=== PATIENT | male | born 1965 | race Caucasian/White ===

== ENCOUNTER 2023-11-24 11:09 | Emergency (ER) | payer SELFPAY ==
[2023-11-24 11:21] VITALS: BP 142/94; O2SAT 99
--- NOTE | 2023-11-24 11:55 | ED Physician Documentation ---
History of Present Illness - Stated complaint Stated Complaint: RT FOOT SWOLLEN - Chief complaint Chief Complaint: Ext Problem - History obtained from History obtained from: Patient - History of Present Illness Timing: How many days ago (3) Pain level max: 6 Pain level now: 6 - Additonal information Additional information: 58-year-old male presents to the emergency department with right foot pain ongoing for the past 3 days since moving furniture into his new home. He has noted swelling and bruising. Has been using crutches it is too painful to walk. Worse with movement, better with rest. Not on blood thinners. No known injury. No head, neck, back pain. No other injuries. Review of Systems Constitutional: denies: Fever, Chills GI: denies: Vomiting, Diarrhea Skin: denies: Rash Musculoskeletal: denies: Neck pain, Back pain Neurologic: denies: Headache PD PAST MEDICAL HISTORY - Past Medical History Past Medical History: No Cardiovascular: None Respiratory: None Neuro: None Endocrine/Autoimmune: None GI: None : None HEENT: None Psych: None Musculoskeletal: None Derm: None - Past Surgical History Past Surgical History: No - Present Medications Home Medications: Ambulatory Orders Medication Instructions Recorded Confirmed HYDROcod/ACETAM 5/325 [Lashmeet 5/325] 1 - 2 ea PO Q6H PRN #14 tablet 11/24/23 - Allergies Allergies/Adverse Reactions: Allergies Allergy/AdvReac Type Severity Reaction Status Date / Time No Known Drug Allergies Allergy Verified 11/24/23 11:20 - Social History Does the pt smoke?: No Smoking Status: Never smoker Does the pt drink ETOH?: No Does the pt have substance abuse?: No - Immunizations Immunizations are current?: Yes - POLST Patient has POLST: No PD ED PE NORMAL - Vitals Vital signs reviewed: Yes - General General: Alert and oriented X 3, No acute distress - HEENT HEENT: Moist mucous membranes - Neck Neck: Supple, no meningeal sign - Respiratory Respiratory: No respiratory distress - Derm Derm: Warm and dry - Extremities Extremities: Other (R foot - Diffuse swelling over the dorsum of the foot with bruising down to the toes. Tenderness over the dorsum of the foot. Neurovascular intact. No tenderness over the ankle, tibia or fibula.) - Neuro Neuro: Alert and oriented X 3 - Psych Psych: Normal mood, Normal affect Results - Vitals Vitals: Vital Signs - 24 hr 11/24/23 11:13 Temperature 36.7 C Heart Rate 76 Respiratory 16 Rate Blood Pressure 142/94 H O2 Saturation 99 Oxygen O2 Source Room air - Rads (name of study) R foot xray Relevant Findings:: Final report received, See rad report PD Medical Decision Making - ED course Complexity details: reviewed results, re-evaluated patient, considered differential, d/w patient, d/w family, d/w talent development consultant ED course: Patient with a right foot injury. Has a second metatarsal fracture. Also third and fourth metatarsal fractures. Dr. Carl came and evaluated the patient in the emergency department, recommends walking boot and follow-up in clinic. Will prescribe pain medications for home. Patient counseled regarding signs and symptoms for which I believe and urgent re-evaluation would be necessary. Patient with good understanding of and agreement to plan and is comfortable going home at this time This document was made in part using voice recognition software. While efforts are made to proofread this document, sound alike and grammatical errors may occur. Departure - Departure Disposition: 01 Home, Self Care Clinical Impression: Metatarsal fracture Qualifiers: Encounter type: initial encounter Metatarsal bone: unspecified metatarsal Fracture type: closed Fracture alignment: displaced Laterality: right Qualified Code(s): S92.301A - Fracture of unspecified metatarsal bone(s), right foot, initial encounter for closed fracture Condition: Good Instructions: ED Fx Foot Follow-Up: [facility] [Provider Group] - Within 1 week Prescriptions: HYDROcod/ACETAM 5/325 [Lashmeet 5/325] 1 - 2 ea PO Q6H PRN #14 tablet PRN Reason: Pain Comments: You have a second metatarsal fracture on your right foot. Please follow-up with orthopedics for further care. You were placed into a walking boot today, your prescriptions were sent to [facility] in [place]. Please return if you worsen. I am prescribing a short course of narcotic pain medication for you. These are potentially dangerous and addictive medications that should be used carefully. These medications may constipate you. Take an [id number] stool softener (docusate) twice daily with plenty of water while taking these medications. If you go 24 hours without a bowel movement, take [id number] miralax, per package instructions. Do not drink or drive while taking these medications. If you received narcotic or sedating medications while in the emergency department, do not drive for 24 hours. Store this medication in a safe, secure place and out of reach of children. It is a violation of federal law to give or sell this medication to another person or to use in a manner other than prescribed. The ED will not refill narcotic prescriptions, including prescriptions lost or stolen. To dispose of unwanted medications: 1. [facility] at [address] in [place] has a medication drop box. They accept prescription medications (in pill form) Wednesday through Wednesday 9:00 a.m. to 5:00 p.m. 2. The [facility] accepts prescription medications (in pill form only) for disposal year round. Call for more information. 3. Contact the [facility] for the next [facility] sponsored prescription drug collection event. , [phone], or [phone]; Forms: PCP List
[2023-11-24] MEDS: HYDROcod/ACETAM 5/325 MG TABLET PO STA (12:04)
--- NOTE | 2023-11-24 12:16 | XRAY Report ---
PROCEDURE: Foot 3+V RT INDICATIONS: SWELLING/PAIN/BRUISING R FOOT TECHNIQUE: 3 views of the foot were acquired. COMPARISON: None. FINDINGS: Bones: There are multiple fractures at the base of the metatarsals most notably second through fourth . Some demonstrate intra-articular extension. The second metatarsal fracture is comminuted with displ acement more severe than reaction of the third and fourth digits. No suspicious bony lesions. Soft tissues: No tibiotalar joint effusion. Achilles tendon appears normal. IMPRESSION: Multiple proximal metatarsal fracture suspicious for Lisfranc. Reviewed by: Lindsey Ferris MD on 11/24/2023 12:15 PM PST Approved by: Lindsey eFrris MD on 11/24/2023 12:15 PM PST Station ID: [id number]
== END 2023-11-24 12:29 | disposition home or self-care (01) ==
LOC: ED 11:09
DX: S92.301A Fracture of unspecified metatarsal bone(s), right foot, initial encounter for closed fracture (principal); X58.XXXA Exposure to other specified factors, initial encounter; Y93.E6 Activity, residential relocation
CPT/HCPCS: 99283; 99284

== ENCOUNTER 2023-12-02 10:45 | Outpatient (CLI) | payer SELFPAY ==
--- NOTE | 2023-12-02 18:16 | XRAY Report ---
PROCEDURE: Foot 3 View RT INDICATIONS: RIGHT FOOT FRACTURES TECHNIQUE: 3 views of the foot were acquired. COMPARISON: 11/24/2023 FINDINGS: Bones: Proximal metatarsal fractures 2 through 4 and lateral subluxation of the first through fourth metatarsals suspicious for homolateral Lisfranc fracture dislocation. No new fractures are identifie d. There is mild plantar calcaneal spurring Soft tissues: No suspicious soft tissue calcifications or masses. Mild peripheral vascular calcifi cation. IMPRESSION: Stable appearance and position of Lisfranc fracture dislocation. Reviewed by: Kathryn Gibbons MD on 12/02/2023 6:14 PM PDT Approved by: Kathryn Gibbons MD on 12/02/2023 6:14 PM PDT Station ID: [id number]
== END 2023-12-02 23:59 | disposition home or self-care (01) ==
LOC: DI.WOS 10:45
PROVIDERS: ATTEND Orthopaedic Surgery
DX: S92.311A Displaced fracture of first metatarsal bone, right foot, initial encounter for closed fracture (principal); S92.321A Displaced fracture of second metatarsal bone, right foot, initial encounter for closed fracture; S92.331A Displaced fracture of third metatarsal bone, right foot, initial encounter for closed fracture; S92.341A Displaced fracture of fourth metatarsal bone, right foot, initial encounter for closed fracture

== ENCOUNTER 2024-01-03 08:00 | Outpatient (CLI) | payer OTHER ==
--- NOTE | 2024-01-03 16:13 | XRAY Report ---
PROCEDURE: Foot 3 View RT INDICATIONS: RIGHT FOOT FRACTURE TECHNIQUE: 3 views of the foot were acquired. COMPARISON: X-ray foot 12/02/2023 FINDINGS: Bones: Proximal metatarsal fractures second through fourth with lateral subluxation is present. Ther e is suspicion for first metatarsal base fracture. Fracture lucencies are slightly less prominent and alignment is stable. Soft tissues: No suspicious soft tissue calcifications or masses. IMPRESSION: Interval healing with stable alignment of multiple Lisfranc fractures. Reviewed by: Lindsey Ferris MD on 01/03/2024 4:12 PM PDT Approved by: Lindsey Ferris MD on 01/03/2024 4:12 PM PDT Station ID: [id number]
== END 2024-01-03 23:59 | disposition home or self-care (01) ==
LOC: DI.WOS 08:00
PROVIDERS: ATTEND Orthopaedic Surgery
DX: S92.321D Displaced fracture of second metatarsal bone, right foot, subsequent encounter for fracture with routine healing (principal); S92.331D Displaced fracture of third metatarsal bone, right foot, subsequent encounter for fracture with routine healing; S92.341D Displaced fracture of fourth metatarsal bone, right foot, subsequent encounter for fracture with routine healing